=== PATIENT | male | born 1995 | race African-American/Black ===

== ENCOUNTER 2024-05-17 08:34 | Inpatient (IN) | payer SELFPAY ==
[2024-05-17] MEDS ORDERED: CEFTRIAXONE 1 G in IV D5W 50 ML IV SCH (09:00)
[2024-05-17] MEDS ORDERED: ACETAMINOPHEN 325 MG TABLET PO PRN (09:00)
[2024-05-17] MEDS ORDERED: ENOXAPARIN SODIUM 30 MG/0.3 ML DISP.SYRIN SQ SCH (09:00)
[2024-05-17] MEDS ORDERED: ACETAMINOPHEN 325 MG TABLET ONE (09:07)
== END 2024-05-17 11:16 | disposition still patient (30) | DRG 951 ==
LOC: ER 08:39 → TELE IN 08:45 → TELE 09:28
PROVIDERS: ADMIT Nurse Practitioner Acute Care; ATTEND Nurse Practitioner Acute Care
DX: Z00.00 Encounter for general adult medical examination without abnormal findings (principal)
CPT/HCPCS: G0378; J0696; J7060